=== PATIENT | female | born 1960 | race Caucasian/White ===

== ENCOUNTER 2019-01-31 03:05 | Emergency (ER) | payer OTHER ==
[~2019-01-31] VITALS: Wt 85.9 kg
--- NOTE | 2019-01-31 04:39 | ERD ---
ER Documentation Chief Complaint Chief Complaint PT STATES LEFT SIDE OF FACE, LEFT ARM, L LEG TINGLING X'S 3 HOURS HPI 58-year-old woman had trouble sleeping tonight and developed paresthesias to the left side of the body including left face spent about 3 hours now, she states intensity of paresthesias has improved overall but began while she was laying in bed affecting her left face, left hand, and left foot. She denies weakness in her upper or lower extremities, no gait ataxia, no headache, no slurred speech, no complaints of chest pain or shortness of breath. Patient has a history of diabetes mellitus and hypertension but denies history of stroke or MO. ROS All systems reviewed and are negative except as per history of present illness. Medications Home Meds Reported Medications Telmisartan (Telmisartan) 20 Mg Tablet, 20 MG PO DAILY, TAB 01/31/19 Furosemide* (Furosemide*) 20 Mg Tablet, 20 MG PO DAILY, #60 TAB 01/31/19 Folic Acid* (Folic Acid*) 1 Mg Tablet, 1 MG PO DAILY, TAB 01/31/19 Simvastatin* (Zocor*) 20 Mg Tablet, 20 MG PO QHS, #30 TAB 01/31/19 Carvedilol* (Carvedilol*) 6.25 Mg Tablet, 6.25 MG PO BID, #60 TAB 01/31/19 Metformin Hcl* (Metformin Hcl*) 1,000 Mg Tablet, 1000 MG PO WITH BREAKFAST DINNE, #30 TAB 01/31/19 Allergies Allergies: Coded Allergies: No Known Allergy (Unverified , 01/31/19) PMhx/Soc Obesity, blindness in the right eye, hypertension, diabetes mellitus FmHx Family History: diabetes Physical Exam Vitals Vital Signs Date Temp Pulse Resp B/P (MAP) Pulse Ox O2 O2 Flow FiO2 Time Delivery Rate 01/31/19 98.5 68 18 119/79 98 Room Air 03:50 (92) 01/31/19 98.5 84 18 141/91 98 03:15 (108) Physical Exam GENERAL: Well-developed, well-nourished, well-hydrated, in no apparent distress, looks nontoxic in appearance HEENT: Moist mucous membranes, pink conjunctiva, no cervical spine tenderness or step-off deformities, no goiter, no jaundice or icterus, extraocular movements intact without pain. No submandibular induration, and no pharyngeal erythema NEURO: Alert and oriented 3, cranial nerves II through XII intact bilaterally, pupils equal round reactive to light, no focal deficits or facial asymmetry, sensation intact distally Strength 5/5 in upper and lower extremities bilaterally CARDIAC: Regular rate and rhythm, no murmurs rubs or gallops LUNGS: Clear bilaterally no wheezing crackles or stridor ABDOMEN: Soft nontender, no guarding, no rigidity, no rebound, no psoas sign no obturator sign. Normoactive bowel sounds SKIN: Warm and dry to touch, no abrasions, contusions, or hematomas, no lacerations, no ecchymosis, no target lesions, and without ulcers EXTREMITIES: No clubbing cyanosis or edema, calves are bilaterally symmetrical, no Homans sign, no popliteal cord sign. Distal pulses equal and bilateral PSYCH: Normal affect without agitation or irritability Result Diagram: 01/31/19 0453 01/31/19 0453 Results 24 hrs Laboratory Tests Test 01/31/19 04:40 01/31/19 04:53 Bedside Glucose 134 mg/dL White Blood Count 11.7 10^3/ul Red Blood Count 4.93 10^6/ul Hemoglobin 12.9 g/dl Hematocrit 41.0 % Mean Corpuscular Volume 83.2 fl Mean Corpuscular Hemoglobin 26.2 pg Mean Corpuscular Hemoglobin Concent 31.5 g/dl Red Cell Distribution Width 14.9 % Platelet Count 275 10^3/UL Mean Platelet Volume 11.0 fl Immature Granulocytes % 0.500 % Neutrophils % 69.6 % Lymphocytes % 23.3 % Monocytes % 4.6 % Eosinophils % 1.5 % Basophils % 0.5 % Nucleated Red Blood Cells % 0.0 /100WBC Immature Granulocytes # 0.060 10^3/ul Neutrophils # 8.1 10^3/ul Lymphocytes # 2.7 10^3/ul Monocytes # 0.5 10^3/ul Eosinophils # 0.2 10^3/ul Basophils # 0.1 10^3/ul Nucleated Red Blood Cells # 0.0 10^3/ul Urine Color YELLOW Urine Clarity CLEAR Urine pH 6.0 Urine Specific [place] 1.011 Urine Ketones NEGATIVE mg/dL Urine Nitrite NEGATIVE mg/dL Urine Bilirubin NEGATIVE mg/dL Urine Urobilinogen NEGATIVE mg/dL Urine Leukocyte Esterase NEGATIVE Marti/ul Urine Hemoglobin NEGATIVE mg/dL Urine Glucose NEGATIVE mg/dL Urine Total Protein NEGATIVE mg/dl Sodium Level 144 mmol/L Potassium Level 3.7 mmol/L Chloride Level 105 mmol/L Carbon Dioxide Level 27 mmol/L Anion Gap 12 Blood Urea Nitrogen 23 mg/dl Creatinine 1.66 mg/dl Est Glomerular Filtrat Rate mL/min 32 mL/min Glucose Level 130 mg/dl Calcium Level 9.8 mg/dl Current Medications Medications Dose Sig/Rosmery Start Time Status Last (Trade) Ordered Route PRN Stop Time Admin Dose Reason Admin Ibuprofen 600 mg ONCE ONCE 01/31/19 DC 01/31/19 (Motrin) PO 05:00 05:22 01/31/19 05:01 Alprazolam 1 mg ONCE ONCE 01/31/19 DC (Xanax) PO 05:00 01/31/19 05:01 Alprazolam 1 mg ONCE ONCE 01/31/19 (Xanax) PO 06:30 01/31/19 06:31 Procedures/MDM I administered ibuprofen 600 mg p.o., alprazolam 1 mg p.o. for her symptoms. CBC and electrolytes are normal, urinalysis negative for infection CT scan of the brain was negative for acute bleed mass or shift Patient's neurologic exam was repeated by me and remained normal, she had no deficits and vital signs are within normal limits. I do not suspect any serious underlying etiology or stroke and she can be discharged to follow-up with PMD although return instructions were provided to her. Differential diagnoses considered, included but not limited to acute coronary syndrome, pulmonary embolism, aortic dissection, abdominal aortic aneurysm, sepsis, stroke, meningitis, encephalitis, pneumonia, appendicitis, cholecystitis, bowel obstruction, pyelonephritis, nephrolithiasis, cystitis, as well as metabolic, hematologic, and electrolyte abnormalities. As well as abscess, cellulitis, fractures, and dislocations. Patient feels much better at this time, and vital signs are normal, symptoms have improved. I did give strict instructions to return to the ED if symptoms continue or worsen, patient will otherwise follow-up with primary care physician. Patient understood instructions and agreed to plan. Disclaimer: Inadvertent spelling and grammatical errors are likely due to EHR/dictation software use and do not reflect on the overall quality of patient care. Also, please note that the electronic time recorded on this note does not necessarily reflect the actual time of the patient encounter. Departure Diagnosis: Primary Impression: Paresthesias Additional Impression: Insomnia Insomnia type: primary Qualified Codes: F51.01 - Primary insomnia Condition: MARI Riggins MD Jan 31, 2019 04:39
[2019-01-31] MEDS ORDERED: ALPRAZOLAM 1 MG TAB PO ONE ×2 (05:00→06:30)
[2019-01-31] MEDS ORDERED: IBUPROFEN 600 MG TAB PO ONE (05:00)
[2019-01-31] MEDS ORDERED: METF100010 PO (05:21)
[2019-01-31] MEDS ORDERED: CARV6.2579 PO (05:21)
[2019-01-31] MEDS ORDERED: SIMV20TA PO (05:21)
[2019-01-31] MEDS ORDERED: FOLI-49 PO (05:21)
[2019-01-31] MEDS ORDERED: TELM20TA7 PO (05:23)
[2019-01-31] MEDS ORDERED: FURO20TA3 PO (05:23)
[2019-01-31 06:00] VITALS: BP 121/83; PULSE 70; RESP 18
== END 2019-01-31 06:16 | disposition home or self-care (01) ==
LOC: E/R 03:05
DX: R20.2 Paresthesia of skin (principal); I10 Essential (primary) hypertension; E11.9 Type 2 diabetes mellitus without complications; F51.01 Primary insomnia; Z79.84 Long term (current) use of oral hypoglycemic drugs
CPT/HCPCS: 36415; 70450; 80048; 81003; 82962; 85025; Z7502; Z7610